=== PATIENT | male | born 1955 | race Caucasian/White ===

== ENCOUNTER 2023-08-21 22:13 | Inpatient (IN) | payer MEDICARE, MEDICAID, SELFPAY ==
[2023-08-21 22:16] VITALS: BP 140/106; PULSE 72; RESP 32; TEMP 36.5; O2SAT 94; BMI 23.9
[2023-08-21 22:24] VITALS: O2SAT 94
--- NOTE | 2023-08-21 22:32 | EKG12_ITS ---
Test Reason : DYSRHYTHMIA Blood Pressure : / mmHG Vent. Rate : 068 BPM Atrial Rate : 068 BPM P-R Int : 196 ms QRS Dur : 094 ms QT Int : 390 ms P-R-T Axes : 086 262 069 degrees QTc Int : 414 ms Normal sinus rhythm Pulmonary disease pattern Non-specific ST changes Abnormal Interpretation affected by baseline artifact Confirmed by Micky Donovan ([id number]), business editor SHAN VENEGAS ([id number]) on 08/22/2023 2:55:21 PM Referred By: Confirmed By:Micky Donovan
[2023-08-21 22:43] VITALS: PULSE 67; RESP 40
[2023-08-21] MEDS: Ipratropium/Albuterol Sulfate 3 ML AMPUL.NEB INHALATION (22:43)
[2023-08-21 22:45] VITALS: O2SAT 97
[2023-08-21] MEDS: Albuterol 2.5 MG/3 ML VIAL.NEB. INHALATION ×3 (22:45→23:08)
[2023-08-21 23:20] LABS: Absolute Lymphocyte Count 0.57 X10^3/uL (0.83-4.51); Absolute Neutrophil Count 6.6 X10^3/uL (2.0-7.7); Basophil# 0.03 X10^3/uL; Basophil% 0.4 % (0-1); Eosinophil# 0.16 X10^3/uL; Hematocrit 43.7 % (40-54); Hemoglobin 13.8 g/dL (13.0-16.5); Lymphocyte # 0.57 X10^3/ul (0.83-4.51); Lymphocyte % 7.1 % (19-41); Mean Corp Hgb Conc 31.6 g/dL (32-36); Mean Corpuscular Hgb 32.7 pg (27.0-32.0); Mean Corpuscular Volume 103.6 fL (80-94); Mean Platelet Vol. 9.5 fl (6.2-12.0); Monocyte# 0.62 X10^3/uL; Monocyte% 7.8 % (0-10); NRBC Flagged by Analyzer 0 % (0-5); Neutrophil # 6.57 X10^3/uL (2.7-7.7); Neutrophil % 82.3 % (47-70); POSITIVE DIFFERENTIAL YES; Platelet Count 182 K/mm3 (150-450); RBC Distribution Width CV 13.6 % (11.6-14.6); RBC Distribution Width SD 52.6 fl (35.1-43.9); Red Blood Count 4.22 M/mm3 (4.6-6.2)
[2023-08-21] MEDS: MethylPREDNISolone 125 MG/2 ML Vial IV (23:20)
[2023-08-21 23:21] VITALS: BP 140/89; PULSE 69; RESP 38; O2SAT 99
--- NOTE | 2023-08-21 23:24 | CPS ---
x3 Albuterol given to pt. in ER as well
--- NOTE | 2023-08-21 23:29 | EDS_ITS ---
HPI History of Present Illness Chief Complaint: Shortness of Breath Informant: patient, EMS and SNF Narrative Narrative: Patient presents around 10:30 PM for dyspnea that has been there all day and hypoxia down to 72% on room air. He is from a [place] [facility] and not on oxygen for his COPD. Patient admits to coughing. He denies having any chest discomfort. He states he is ready to go home but agrees that he is also short of breath and sick. No known fevers or chills. History from before ROS right now is limited from the patient due to dementia. [facility] Medical History ADHD (attention deficit hyperactivity disorder) Alcohol use COPD (chronic obstructive pulmonary disease) Delusional disorder Dementia Generalized arthritis Kidney disease, chronic, stage I (GFR over 89 ml/min) Paranoid schizophrenia PTSD (post-traumatic stress disorder) PVD (peripheral vascular disease) Allergy/AdvReac Type Severity Reaction Status Date / Time Penicillins Allergy Unknown UNKNOWN Verified 08/21/23 23:17 Social History housing: [place] [facility] Smoking Status: Current every day smoker tobacco type: cigarettes ROS ROS ED Constitutional Constitutional ED: Denies chills or fever(s) Eyes Eyes: Denies change in vision or diplopia ENT ENT ED: Denies rhinorrhea or sore throat Cardiovascular Cardiovascular: Denies chest pain or palpitations Respiratory/Chest Respiratory/Chest: Reports cough and dyspnea Gastrointestinal Gastrointestinal: Denies abdominal pain, diarrhea, nausea or vomiting Genitourinary Genitourinary ED: Denies dysuria or hematuria Musculoskeletal Musculoskeletal: Denies back pain or neck pain Integumentary Denies abscess or rash Neurologic Neurologic: Denies headache(s), paresthesias or weakness EXAM Physical Exam Const Vital Signs: 08/21/23 22:16 08/21/23 22:24 08/21/23 22:45 Temperature 97.7 F L Temperature Source Axillary Pulse Rate 72 Respiratory Rate 32 H Respiratory Effort Short of Breath Labored Respiratory Pattern Tachypnea Blood Pressure 140/106 H Blood Pressure Mean 117 Pulse Ox 94 97 Oxygen Delivery Method Nasal Cannula Nasal Cannula Oxygen Flow Rate (L/min) 2 2 08/21/23 23:21 08/21/23 22:43 Temperature Temperature Source Pulse Rate 69 67 Respiratory Rate 38 H 40 H Respiratory Effort Respiratory Pattern Tachypnea Blood Pressure 140/89 H Blood Pressure Mean 106 Pulse Ox 99 Oxygen Delivery Method Oxygen Flow Rate (L/min) Positive well nourished and well developed General Appearance ED: well developed and NAD HEENT Reports moist mucous membranes normocephalic and atraumatic Eyes PERRL and EOMs intact bilaterally Neck full ROM and supple Resp Resp Narrative: Prolonged expiratory phase and diffuse expiratory wheezes bilaterally and symmetrically. Diffusely diminished but symmetrically so. Tachypnea but no respiratory distress. No rales or rhonchi. Cardio regular rate, regular rhythm and no murmurs GI non-tender and non-distended Auscultation: normoactive bowel sounds Palpation: soft Back/Spine no CVA tenderness General Back: other FROM Extremity normal to inspection General Extremety ED: Negative for edema, pulses abnormal or tenderness General Extremity: Negative for edema or pulses abnormal Neuro CN's II-XII intact bilaterally and no sensory deficits noted Sensorium / Orientation: awake, alert, oriented to person and oriented to place; Negative for oriented to time Motor Exam: strength 5/5 throughout Psych Psych Narrative: Flat affect Skin no rashes or lesions noted and no wounds MDM MDM MDM Narrative Medical decision making narrative: Patient a little less wheezy after several nebulizer treatments, but still wheezing and mildly tachypneic. No respiratory distress. When we removed his oxygen at rest, he desatted down to 89% on room air. We ambulated him, and just after a short ambulation, he desatted to 85% and stayed there for a while until we got him back on oxygen. His troponin is elevated, I suspect likely due to subendocardial ischemia from hypoxemia today. His EKG shows no acute injury pattern although it is relatively limited because the patient would not sit still for the prosthetic lab technician. Given his degree of hypoxemia and the fact that he is in a long-term care facility that is not necessarily acute nursing home, will admit him. He refused chest x-ray multiple times, I was able to coax him into allowing us to do a one-view portable which on my interpretation shows no acute pneumonia, just COPD hyperexpansion. His viral swab was positive for influenza A. Lab Data Attestation: I reviewed the patient's lab results. Labs: Laboratory Results - last 24 hr 08/21/23 23:13 WBC 8.0 RBC 4.22 L Hgb 13.8 Hct 43.7 MCV 103.6 H MCH 32.7 H MCHC 31.6 L RDW Std Deviation 52.6 H RDW Coeff of Bin 13.6 Plt Count 182 MPV 9.5 Immature Gran % (Auto) 0.400 Neut % (Auto) 82.3 H Lymph % (Auto) 7.1 L [place] % (Auto) 7.8 Eos % (Auto) 2.0 Baso % (Auto) 0.4 Absolute Neuts (auto) 6.6 Absolute Lymphs (auto) 0.57 L Nucleated RBC % 0 Sodium 137 Potassium 4.8 Chloride 99 Carbon Dioxide 35.0 H Anion Gap 3 L BUN 37 H Creatinine 1.45 H Estim Creat Clear Calc 54.26 Est GFR (MDRD) Af Amer 62 Est GFR (MDRD) Non-Af 52 L BUN/Creatinine Ratio 25.5 H Glucose 129 H Calcium 9.7 Troponin I High Sens 128 H* Rhythm Strip Rhythm Strip: Sinus Rhythm Rate: 68 Ectopy: None EKG Initial EKG: Attestation: I personally reviewed and interpreted this EKG as follows: Interpretation: Sinus Rhythm and No Acute Injury Pattern Management Discussion w/another healthcare provider: Hospitalist Discharge Plan Dx/Rx/DC Orders Clinical Impression: Influenza A, Hypoxemia, Dementia, Acute exacerbation of chronic obstructive pulmonary disease (COPD), Subendocardial ischemia Disposition Disposition: [facility]
[2023-08-21 23:49] LABS: Anion Gap 3 (5-15); BUN 37 mg/dL (7-18); BUN/Creat Ratio 25.5 RATIO (10-20); Calcium,Total 9.7 mg/dL (8.5-10.1); Chloride 99 mmol/L (98-107); Creatinine, Serum 1.45 mg/dL (0.70-1.30); EST Glomerular Filtration Rate 52 mL/min (>60); Est Glom Filt Rate - Afr Amer 62 mL/min (>60); Estimated Creatinine Clearance 54.26 ml/min; Glucose 129 mg/dL (74-106); Potassium 4.8 mmol/L (3.5-5.1); Sodium Level 137 mmol/L (136-145); Troponin-I HS 128 pg/mL (3.0-78.0)
[2023-08-21 23:50] VITALS: O2SAT 85
[2023-08-22] VITALS (16 sets, daily range): BP systolic 76–125; BP diastolic 48–70; PULSE 69–82; RESP 12–30; TEMP 36.6–36.8; O2SAT 79–98; BMI 23.3
--- NOTE | 2023-08-22 00:03 | RAD_ITS ---
EXAM: XR Chest 1 View INDICATION: Male, 68 years old. Shortness of breath TECHNIQUE: Portable AP view COMPARISON: None FINDINGS: DEVICES: None LUNGS: Hyperexpansion of the lungs. No confluent air space opacity. No concerning pulmonary nodule. No pleural effusion or pneumothorax. MEDIASTINUM: Cardiac and mediastinal silhouettes are within normal limits. No central pulmonary vascular congestion. Calcification of the aortic arch. SKELETAL STRUCTURES: No acute skeletal abnormality. Mild multilevel degenerative changes in the spine. UPPER ABDOMEN: Unremarkable RAD/Chest 1 View (Portable) IMPRESSION: Chronic obstructive changes of the lungs with no acute cardiopulmonary disease Electronically Signed: Tj Ferrer MD at 0:42 EST ,
--- NOTE | 2023-08-22 00:14 | ED.RN ---
Patient refusing to wear BP cuff, heart monitor leads and SpO2 monitor. O2 NC at 2L. Dr. Fiore aware. Patient is resting in bed. Beverage given.
--- NOTE | 2023-08-22 00:20 | HP.PCM.HOS_ITS ---
HPI - General General Date of Admission: 08/22/23 Date of Service: 08/22/23 Chief Complaint: Cough, dyspnea, wheezing, hypoxia at SNF. HPI Narrative The patient is a 68 y/o M w/ PMHx: HTN, HLD, Alcohol Related Dementia with unclear behavioral disturbance history, Anxiety and Depression/ADHD/Paranoid schizophrenia/PTSD, CKD stage I, PVD, COPD, Hx EtOH Abuse, Tobacco use who presents to the [facility] ED on 08/21/23 with history of dyspnea, wheezing, labored breathing prompting EMS call to skilled facility with noted oxygenation 72% on room air normally not requiring any oxygen supplementation prompting EMS to place patient on a nonrebreather with improvement of saturations to 94% prompting ED evaluation. In the ED patient does report that he feels better since initial ED arrival. He does state that he has had a mild cough recently over the last 2448 hrs. He does admit to fatigue and malaise. He denies any recent nausea, emesis, marked congestion, fever or chills. He denies any chest pain. Workup in the ED included T97.7, heart rate 72, BP 140/106, respiratory rate 32, 94% on 2 L nasal cannula, CBC with WBC 8, hemoglobin 13.8, platelets 182 with lymphopenia, BMP with carbon oxide 35, anion gap 3, BUN/creatinine 37/1.45, glucose 129, troponin 128, chest x-ray with chronic type COPD changes with no acute cardiopulmonary findings but final read pending per radiology, rapid SARS COVID/influenza/RSV PCR with positive, EKG was sinus rhythm with no acute evidence of ischemia. In the ED patient administered albuterol, DuoNeb the rapies as well as Solu-Medrol 125 mg IV x 1. [facility] Medical History ADHD (attention deficit hyperactivity disorder) Alcoholic dementia COPD (chronic obstructive pulmonary disease) Delusional disorder Generalized arthritis History of alcohol abuse HLD (hyperlipidemia) Kidney disease, chronic, stage I (GFR over 89 ml/min) Paranoid schizophrenia PTSD (post-traumatic stress disorder) PVD (peripheral vascular disease) Tobacco use Home Medications atorvastatin 40 mg tablet 40 mg PO DAILY 08/22/23 [History Last Taken Unknown] folic acid 400 mcg tablet 400 mcg PO DAILY 08/22/23 [History Last Taken Unknown] hydrochlorothiazide 12.5 mg tablet 12.5 mg PO DAILY 08/22/23 [History Last Taken Unknown] lisinopril 10 mg tablet 10 mg PO DAILY 08/22/23 [History Last Taken Unknown] multivitamin 1 tab PO DAILY 08/22/23 [History Last Taken Unknown] olanzapine 20 mg tablet 20 mg PO DAILY 08/22/23 [History Last Taken Unknown] oxcarbazepine 150 mg tablet 150 mg PO DAILY 08/22/23 [History Last Taken Unknown] oxcarbazepine 600 mg tablet 600 mg PO DAILY 08/22/23 [History Last Taken Unknown] propranolol 120 mg capsule,24 hr,extended release (Inderal LA) 120 mg PO DAILY 08/22/23 [History Last Taken Unknown] ziprasidone HCl 20 mg capsule (Geodon) 20 mg PO DAILY 08/22/23 [History Last Taken Unknown] Allergy/AdvReac Type Severity Reaction Status Date / Time Penicillins Allergy Unknown UNKNOWN Verified 08/21/23 23:17 Family History (Updated 08/22/23 @ 00:[address] Fatemeh Guerra MD) Mother No problems noted. Father No problems noted. Family History other other (Patient denies any marked maternal or paternal family history including HD, DM, CA, Substance abuse/EtOH abuse but poor historian given dementia history.) Surgical History (Updated 08/22/23 @ 00:[address] Fatemeh Guerra MD) H/O left wrist surgery Social History (Updated 08/22/23 @ 00:[address] Fatemeh Guerra MD) household members: none housing: skilled nursing Smoking Status: Current every day smoker tobacco type: cigarettes alcohol intake: former substance use type: does not use ROS ROS Narrative Admission Review of Systems: CONSTITUTIONAL: No weight loss, fever, chills, + weakness or fatigue. HEENT: Eyes: No visual loss, blurred vision, double vision or yellow sclerae. Ears, Nose, Throat: No hearing loss, sneezing, congestion, runny nose or sore throat. SKIN: No rash or itching, lesions, wounds. CARDIOVASCULAR: No chest pain, chest pressure or chest discomfort, palpitations, edema, orthopnea, syncopal events. RESPIRATORY: + shortness of breath, cough without marked sputum. No wheezing, hemoptysis. GASTROINTESTINAL: No anorexia, nausea, vomiting or diarrhea, abdominal pain, melena, BRBPR. GENITOURINARY: No dysuria, frequency, urgency or retention. NEUROLOGICAL: + Underlying chronic alcoholic dementia. No headache, dizziness, syncope, paralysis, ataxia, numbness or tingling in the extremities, focal weakness, change in bowel or bladder control, seizure. MUSCULOSKELETAL: + muscle, back pain, joint pain or stiffness. HEMATOLOGIC: No anemia. + Easy bleeding/bruising. LYMPHATICS: No enlarged nodes. No history of splenectomy. PSYCHIATRIC: + History of anxiety and depression. ENDOCRINOLOGIC: No reports of sweating, cold or heat intolerance. No polyuria or polydipsia. ALLERGIES: No history of asthma, hives, eczema or rhinitis. Vital Signs Vital Signs Vital Signs: 08/21/23 22:16 08/21/23 22:24 08/21/23 22:45 Temperature 97.7 F L Temperature Source Axillary Pulse Rate 72 Respiratory Rate 32 H Respiratory Effort Short of Breath Labored Respiratory Pattern Tachypnea Blood Pressure 140/106 H Blood Pressure Mean 117 Pulse Ox 94 97 Oxygen Delivery Method Nasal Cannula Nasal Cannula Oxygen Flow Rate (L/min) 2 2 08/21/23 23:21 08/21/23 22:43 Temperature Temperature Source Pulse Rate 69 67 Respiratory Rate 38 H 40 H Respiratory Effort Respiratory Pattern Tachypnea Blood Pressure 140/89 H Blood Pressure Mean 106 Pulse Ox 99 Oxygen Delivery Method Oxygen Flow Rate (L/min) Weight Weight: 176 lb 5.917 oz Body Mass Index (BMI) 23.9 Physical Exam Narrative Physical Examination: General: Awake, alert, oriented to self, place and some recent events but unable to give year or month which is baseline, remains cooperative to current evaluation but did refuse several times to have chest x-ray performed but eventually allowed a single plain film, notes breathing is improved, still mild tachypnea but no evidence of respiratory distress. Skin: Normal color, normal turgor, no icterus, no cyanosis except occasional staged ecchymoses, abrasion. HEENT: AT/NC, EOMI, PERRLA, mildly dry MM, no carotid bruits or JVD noted. Lungs: Diminished, greater bases, mildly increased respiratory rate but no evidence of any distress, still diffuse soft end expiratory wheezing noted, no marked rales or rhonchi. Heart: Currently regular rate and rhythm; no gallop, rub audible. Abdomen: Soft, NTTP, ND, hyperactive BS, appreciated mild HM. Extremities: No cyanosis, clubbing, or edema. Neurological: Patient awake, alert, oriented as noted, cognitive function decreased baseline with underlying alcoholic dementia and suspect currently he is at his baseline; pupils equally reactive to light and accommodation, cranial nerves grossly normal, moving all 4 extremities, no focal deficits, strength moderately to severely globally decreased secondary to his acute pulmonary presentation Psychiatric: Affect appears flat, fatigued, no acute evidence of depressive or anxiety feelings but does have underlying history. Results Lab / Micro Data 08/21/23 23:13 08/21/23 23:13 Labs: Laboratory Results - last 24 hr 08/21/23 23:13: WBC 8.0, RBC 4.22 L, Hgb 13.8, Hct 43.7, MCV 103.6 H, MCH 32.7 H , MCHC 31.6 L, RDW Std Deviation 52.6 H, RDW Coeff of Bin 13.6, Plt Count 182, MPV 9.5, Immature Gran % (Auto) 0.400, Neut % (Auto) 82.3 H, Lymph % (Auto) 7.1 L, [place] % (Auto) 7.8, Eos % (Auto) 2.0, Baso % (Auto) 0.4, Absolute Neuts (auto) 6.6, Absolute Lymphs (auto) 0.57 L, Nucleated RBC % 0, Sodium 137, Potassium 4.8, Chloride 99, Carbon Dioxide 35.0 H, Anion Gap 3 L, BUN 37 H, Creatinine 1.45 H, Estim Creat Clear Calc 54.26, Est GFR (MDRD) Af Amer 62, Est GFR (MDRD) Non-Af 52 L, BUN/Creatinine Ratio 25.5 H, Glucose 129 H, Calcium 9.7, Troponin I High Sens 128 H* Micro: Microbiology 08/21/23 23:13 Mucosa - Nose SARS-CoV-2, Influenza & RSV (PCR) - Final Influenzae A Rhythm Strip Rhythm Strip: Sinus Rhythm Rate: 68 Ectopy: None Assessment & Plan Assessment/Plan (1) Acute exacerbation of chronic obstructive pulmonary disease (COPD): PLAN: Plan The patient is a 68 y/o M w/ PMHx: HTN, HLD, Alcohol Related Dementia with unclear behavioral disturbance history, Anxiety and Depression/ADHD/Paranoid schizophrenia/PTSD, CKD stage I, PVD, COPD, Hx EtOH Abuse, Tobacco use who presents to the [facility] ED on 08/21/23 with history of dyspnea, wheezing, labored breathing prompting EMS call to skilled facility with noted oxygenation 72% on room air normally not requiring any oxygen supplementation prompting EMS to place patient on a nonrebreather with improvement of saturations to 94% prompting ED evaluation. #1. Acute Hypoxia secondary to Acute on Chronic COPD exacerbation secondary to Acute Influenza A Syndrome: Will admit to PCU given #2, maintain on oxygen with wean as tolerated to room air, will intiate and continue on tamiflu with 75 mg x 1 and then 30 mg BID given current CrCl with adjustment penidng trending, will continue ATC duonebs, PRN albuterol, IV methylprednisolone, HOB, IS parameters, will obtain sputum Cx, procalcitonin, will hold on immediately abx therapy if concerned for overlapping superimposed bacterial infection. #2. Indeterminate cardiac enzyme, suspected demand related with hypoxemia s econdary to #1: EKG in ED sinus rhythm with no acute evidence of ischemia, CXR w/ chronic COPD type changes with no acute cardiopulmonary findings however final radiology read pending upon evaluation, initial trop 128, will maintain on monitored bed to assure no acute myocardial infarction with serial cardiac enzymes and EKGs. Echocardiogram requested. Magnesium level requested. FLP in AM. Will maintain on aspirin therapy. Again suspect this is demand related given with his acute presentation #1 but will continue closely monitor and if troponin significantly rises low threshold to place on a heparin drip and consult cardiology. #3. Presumed acute renal insufficiency on CKD stage I chart reported per skilled facility: Admission BUN/Cr 37/1.45 baseline renal function unknown however patient's GFR upon current presentation 52 and the skilled facility notes CKD stage I, will judiciously hydrate and repeat BMP in AM. #4. Hypertension: Continue home regimen including propranolol, given #3 will temporarily hold ACEI/HCYZ, PRN hydralazine. #5. Hyperlipidemia: Continue home statin regimen. #6. Alcohol related dementia with unclear behavioral disturbance history: Complicates presentation, not on any specific dementia regimen, on notable psychiatric regimen, maintain on fall precautions, PT/OT/case management consulted for discharge planning. Will continue multivitamin, folic acid and thiamine supplementation per facility. #7. Former alcohol abuse: Encouraged continued sobriety. #8. Anxiety and Depression/ADHD/Paranoid schizophrenia/PTSD: Continue home olanzapine, oxcarbazepine, geodon home regimen. #9. Tobacco Abuse: Encouraged cessation, inpatient consultation per RT, NR if desired. #10. PVD: Will continue aspirin, statin, hypertensive regimen with adjustments as noted. #11. DVT prophylaxis: Lovenox. #12. CODE status: DNR-CC per facility paperwork. Charges/Coding Visit Charges Inpatient E&M: 24755 Init Hosp L3
[2023-08-22 01:37] LABS: Magnesium 1.9 mg/dL (1.6-2.6); Phosphorus 4.4 mg/dL (2.5-4.9)
--- NOTE | 2023-08-22 01:44 | ECHOD_ITS ---
Reason For Study: CAD/ASHD Procedure This was a 2D Doppler, Color Flow transthoracic echocardiogram. Technically Difficult study. Patient uncooperative, agitated and combative, limited views were obtained. Exam performed portable in ICU/CCU. Left Ventricle Normal size and thickness. The left ventricular ejection fraction is 70 %. Unable to assess diastolic function based on available data. Right Ventricle Normal right ventricle. Atria The left and right atria are normal. Mitral Valve Trivial mitral valve insufficiency. Tricuspid Valve Moderate (2+) tricuspid valve insufficiency. Right ventricular systolic pressure estimated to be 72 mmHg. Aortic Valve Trisinus/trileaflet aortic valve. Pulmonic Valve The pulmonic valve is not well visualized. Great Vessels Mildly dilated aortic root. Pericardium/Pleural No pericardial effusion. MMode/2D Measurements & Calculations LVIDd: 3.6 cm IVSd: 1.1 cm Ao root diam: 4.0 cm LVIDs: 1.9 cm LVPWd: 0.98 cm LA dimension: 3.2 cm FS: 47.9 % Time Measurements MV dec time: 0.28 sec Doppler Measurements & Calculations MV E max jarrod: 83.9 cm/sec MV V2 max: 112.0 cm/sec MV P1/2t max jarrod: 91.6 cm/sec MV A max jarrod: 80.8 cm/sec MV max P.0 mmHg MV P1/2t: 105.6 msec MV E/A: 1.0 MV V2 mean: 64.0 cm/sec MV mean P.9 mmHg MV dec slope: 254.0 cm/sec2 MV V2 VTI: 32.3 cm MVA(P1/2t): 2.1 cm2 PA V2 max: 107.4 cm/sec TR max jarrod: 378.2 cm/sec PA V2 mean: 66.3 cm/sec TR max P.2 mmHg ECHO/Echo Complete Interpretation Summary Technically Difficult study. Limited views were obtained. The left ventricular ejection fraction is 70 %. Moderate (2+) tricuspid valve insufficiency. Right ventricular systolic pressure estimated to be 72 mmHg. Mildly dilated aortic root. Ordering Physician: Fatemeh Guerra Performed By: Christian Meek RCS
--- NOTE | 2023-08-22 02:11 | NURSING ---
Pt arrived in icu room 9 wearing clothes with hospital gown over top. At first, pt refusing to take off long sleeve shirt and allow staff to apply heart monitor. After pleading with pt, pt finally agreed to remove shirt and let us put heart monitor on. Staff documented pt's belongings in worklist and started to place belonging bag in closet, pt became angry and demanded that his jacket be placed on his bed. Pt's jacket placed on bed. Informed pt that more bloodwork was ordered, pt yells I already gave blood!. This RN educates pt that these are new orders for different labs and that his blood could be drawn from his PIV and he wouldn't have to be poked with a needle, pt reluctantly agrees to let this RN draw blood. This RN informed pt that tamiflu and aspirin were ordered for him and while trying to educate pt on why these medications were ordered, pt interrupts this RN yelling I don't want no drugs!! Pt also refused to let this RN start IV maintenance fluids. Dr. Guerra notified. Warm blanket provided. Pt offered something to drink, pt declined. Urinal given to pt. Bed exit alarm on. Call light within reach.
[2023-08-22 02:15] LABS: Absolute Lymphocyte Count 0.41 X10^3/uL (0.83-4.51); Basophil# 0.03 X10^3/uL; Basophil% 0.4 % (0-1); Eosinophil# 0.06 X10^3/uL; Eosinophils% 0.8 % (0-5); Hematocrit 41.2 % (40-54); Lymphocyte # 0.41 X10^3/ul (0.83-4.51); Lymphocyte % 5.3 % (19-41); Mean Corp Hgb Conc 31.6 g/dL (32-36); Mean Corpuscular Hgb 32.5 pg (27.0-32.0); Mean Platelet Vol. 9.9 fl (6.2-12.0); Monocyte# 0.19 X10^3/uL; Monocyte% 2.5 % (0-10); NRBC Flagged by Analyzer 0 % (0-5); Neutrophil # 7.03 X10^3/uL (2.7-7.7); Neutrophil % 90.6 % (47-70); POSITIVE DIFFERENTIAL YES; Platelet Count 164 K/mm3 (150-450); RBC Distribution Width CV 13.6 % (11.6-14.6); RBC Distribution Width SD 52.3 fl (35.1-43.9); White Blood Count 7.8 K/mm3 (4.4-11.0)
[2023-08-22] MEDS: Acetaminophen 325 MG Tablet 650 MG PO ×2 (02:37→21:38)
[2023-08-22] MEDS: guaiFENesin 10 ML UDC (200MG/10ML) 20 ML PO (02:40)
[2023-08-22 03:01] LABS: Troponin-I HS 142 pg/mL (3.0-78.0)
[2023-08-22 03:28] LABS: Procalcitonin 0.05 ng/mL (0.00-0.09)
[2023-08-22 06:12] LABS: ALB/GLOB Ratio 0.8 RATIO (0.9-2.4); AST(SGOT) 33 U/L (15-37); Alanine Aminotransfer ALT/SGPT 26 U/L (16-61); Albumin, Serum 3.6 g/dL (3.2-5.0); Alkaline Phosphatase 99 U/L (45-117); Anion Gap 7 (5-15); BUN 39 mg/dL (7-18); BUN/Creat Ratio 25.8 RATIO (10-20); Calcium,Total 9.1 mg/dL (8.5-10.1); Chloride 99 mmol/L (98-107); Creatinine, Serum 1.51 mg/dL (0.70-1.30); EST Glomerular Filtration Rate 49 mL/min (>60); Est Glom Filt Rate - Afr Amer 60 mL/min (>60); Globulin 4.3 g/dL (2.2-4.2); Glucose 143 mg/dL (74-106); Potassium 5.1 mmol/L (3.5-5.1); Protein, Total 7.9 g/dL (6.4-8.2); Sodium Level 137 mmol/L (136-145)
[2023-08-22 06:15] LABS: Troponin-I HS 145 pg/mL (3.0-78.0)
--- NOTE | 2023-08-22 08:37 | PCM.PN.HOSP ---
Reason for Visit Reason for Visit: Diagnoses Chronic obstructive pulmonary disease with (acute) exacerbation (08/22/23) Subjective Subjective Patient is a 68-year-old gentleman with history of hypertension dyslipidemia paranoid schizophrenia who presented to the emergency department with shortness of breath diagnosed with acute influenza A infection admitted to a monitored bed for further management Objective Data Objective Data Vital Signs: Vital Signs Temp Pulse Resp BP Pulse Ox O2 Del Method O2 Flow Rate 97.8 F 71 20 H 125/70 H 95 Nasal Cannula 3 08/22/23 02:28 08/22/23 02:28 08/22/23 02:28 08/22/23 02:28 08/22/23 02:28 08/22/23 02:28 08/22/23 02:28 Oxygen Flow Rate (L/min) 3 Oxygen Delivery Method Nasal Cannula Weight: 78.2 kg Body Mass Index (BMI) 23.3 Lab / Micro Data 08/22/23 02:05 08/22/23 02:05 Labs: Laboratory Results - last 24 hr 08/21/23 23:13: WBC 8.0, RBC 4.22 L, Hgb 13.8, Hct 43.7, MCV 103.6 H, MCH 32.7 H, MCHC 31.6 L, RDW Std Deviation 52.6 H, RDW Coeff of Bin 13.6, Plt Count 182, MPV 9.5, Immature Gran % (Auto) 0.400, Neut % (Auto) 82.3 H, Lymph % (Auto) 7.1 L, [place] % (Auto) 7.8, Eos % (Auto) 2.0, Baso % (Auto) 0.4, Absolute Neuts (auto) 6.6, Absolute Lymphs (auto) 0.57 L, Nucleated RBC % 0, Sodium 137, Potassium 4.8, Chloride 99, Carbon Dioxide 35.0 H, Anion Gap 3 L, BUN 37 H, Creatinine 1.45 H, Estim Creat Clear Calc 54.26, Est GFR (MDRD) Af Amer 62, Est GFR (MDRD) Non-Af 52 L, BUN/Creatinine Ratio 25.5 H, Glucose 129 H, Calcium 9.7, Phosphorus 4.4, Magnesium 1.9, Troponin I High Sens 128 H* 08/22/23 02:05: WBC 7.8, RBC 4.00 L, Hgb 13.0, Hct 41.2, MCV 103.0 H, MCH 32.5 H, MCHC 31.6 L, RDW Std Deviation 52.3 H, RDW Coeff of Bin 13.6, Plt Count 164, MPV 9.9, Immature Gran % (Auto) 0.400, Neut % (Auto) 90.6 H, Lymph % (Auto) 5.3 L, [place] % (Auto) 2.5, Eos % (Auto) 0.8, Baso % (Auto) 0.4, Absolute Neuts (auto) 7.0, Absolute Lymphs (auto) 0.41 L, Nucleated RBC % 0, Sodium 137, Potassium 5.1, Chloride 99, Carbon Dioxide 31.0, Anion Gap 7, BUN 39 H, Creatinine 1.51 H, Estim Creat Clear Calc 52.10, Est GFR (MDRD) Af Amer 60, Est GFR (MDRD) Non-Af 49 L, BUN/Creatinine Ratio 25.8 H, Glucose 143 H, Calcium 9.1, Total Bilirubin 0.30, AST 33, ALT 26, Alkaline Phosphatase 99, Troponin I High Sens 142 H*, Total Protein 7.9, Albumin 3.6, Globulin 4.3 H, Albumin/Globulin Ratio 0.8 L, Procalcitonin 0.05 08/22/23 05:20: Troponin I High Sens 145 H* Micro: Microbiology 08/21/23 23:13 Mucosa - Nose SARS-CoV-2, Influenza & RSV (PCR) - Final Influenzae A Radiography Diagnostic Testing: Radiology Impression Chest X-Ray 08/22/23 00:03 IMPRESSION: Chronic obstructive changes of the lungs with no acute cardiopulmonary disease Electronically Signed: Tj Ferrer MD at 0:42 EST , Rhythm Strip Rhythm Strip: Sinus Rhythm Rate: 68 Ectopy: None Physical Exam Narrative GENERAL: cooperative HEENT: Atraumatic; normocephalic EYES; Anicteric, Normal Conjunctiva NECK; supple, normal thyroid, RESPIRATORY: Diminished to auscultation CARDIOVASCULAR: Regular S1 S2, GI: soft, normoactive bowel sounds, : No Renal angle tenderness; EXTREMITIES: No edema, no clubbing, MUSCULOSKELETAL: no muscle wasting NEURO: Awake; no lateralizing signs. SKIN: No Rash PSYCH; Flat affect Assessment & Plan Assessment/Plan (1) Acute exacerbation of chronic obstructive pulmonary disease (COPD): PLAN: Plan Patient is a 68-year-old gentleman with history of hypertension dyslipidemia paranoid schizophrenia who presented to the emergency department with shortness of breath diagnosed with acute influenza A infection admitted to a monitored bed for further management 1. Acute hypoxia ? Secondary to combination of acute influenza A infection as well as COPD with acute exacerbation 2. Acute influenza A infection ? Patient started on Tamiflu. Per nursing staff patient is declining the Tamiflu. 3. COPD with acute exacerbation ? Patient management bronchodilator treatment systemic steroids as well as Zithromax 4. Elevated troponin A secondary to myocardial injury from 1 and #2 echo ordered for LVEF assessment 5. Hypertension - Blood pressure controlled, home medications continued with dose adjustment as needed 6. Dyslipidemia -Patient is on statin therapy, continued at home dose 7. Paranoid schizophrenia -did continue patient psychotropic medications 8. Early onset dementia ? Thought to be related to chronic alcohol use supportive care 9. DVT prophylaxis ? SC Lovenox. Time spent in the patient's overall evaluation,decision-making process, review of diagnostic data, adjustment of management, discussion with other providers, nursing nursing and ancillary staff involved in patient's care documentation, 40 Minutes Charges/Coding Visit Charges Inpatient E&M: 76786 Subs Hosp L2
--- NOTE | 2023-08-22 09:31 | CASEMGMT ---
Social Work SW called [facility], they faxed over the guardianship paper showing pt's brother Pedro is pt's guardian. SW called Pedro, confirmed the plan for pt at discharge will be for him to return to [facility]. SNF list not needed at this time. SW will continue to follow, d/c pre planning advisor Genet will send [facility] updates today. IRVING Chakraborty
[2023-08-22] MEDS: OXcarbazepine 150 MG Tablet PO (09:46)
[2023-08-22] MEDS: Aspirin 81 MG TAB.CHEW PO (09:46)
[2023-08-22] MEDS: Azithromycin 250 MG Tablet 500 MG PO (09:46)
[2023-08-22] MEDS: OLANZapine 10 MG Tablet 20 MG PO (09:47)
[2023-08-22] MEDS: Oseltamivir Phosphate 30 MG Capsule PO ×2 (09:47→21:38)
[2023-08-22] MEDS: OXcarbazepine 600 MG Tablet PO (09:47)
[2023-08-22] MEDS: Ziprasidone HCl 20 MG Capsule PO (09:47)
[2023-08-22] MEDS: Thiamine Hydrochloride 100 MG Tablet PO (09:47)
[2023-08-22] MEDS: Multivitamins,Therapeutic Tablet 1 TABLET PO (09:48)
[2023-08-22] MEDS: Folic Acid 1 MG Tablet 0.5 MG PO (09:48)
--- NOTE | 2023-08-22 10:17 | CASEMGMT ---
Discharge Planning Updates faxed to [facility] Haque. Genet Schneider, Discharge Planning Asst.
--- NOTE | 2023-08-22 15:17 | NURSING ---
pt sleeping still and vs taken. bp 76/59. internal controls consultant aware and will see if dr. greene wants fluids.
[2023-08-22] MEDS: Albuterol 2.5 MG/3 ML VIAL.NEB. INHALATION (17:35)
[2023-08-22] MEDS: MELATONIN 3 MG TABLET PO (21:38)
[2023-08-22] MEDS: Atorvastatin Calcium 40 MG Tablet PO (21:38)
--- NOTE | 2023-08-22 22:29 | PCM.HOSP.N ---
Hospitalist Note Patient with increased agitation, underlying dementia history, will add low dose q HS seroquel.
[2023-08-23] VITALS (8 sets, daily range): BP systolic 89–130; BP diastolic 41–74; PULSE 60–81; RESP 18–38; TEMP 36.2–37.9; O2SAT 94–98; BMI 23.6
[2023-08-23] MEDS: OXcarbazepine 150 MG Tablet PO ×2 (00:14→07:27)
[2023-08-23] MEDS: OXcarbazepine 600 MG Tablet PO ×2 (00:14→07:27)
[2023-08-23] MEDS: 0.9% Saline Lock 10 ML Syringe IV ×4 (04:13→21:08)
[2023-08-23] MEDS: guaiFENesin 10 ML UDC (200MG/10ML) 20 ML PO (04:13)
[2023-08-23] MEDS: Acetaminophen 325 MG Tablet 650 MG PO (04:13)
[2023-08-23 06:55] LABS: Absolute Lymphocyte Count 0.65 X10^3/uL (0.83-4.51); Absolute Neutrophil Count 10.6 X10^3/uL (2.0-7.7); Basophil# 0.03 X10^3/uL; Basophil% 0.2 % (0-1); Hematocrit 42.4 % (40-54); Hemoglobin 12.5 g/dL (13.0-16.5); Lymphocyte # 0.65 X10^3/ul (0.83-4.51); Lymphocyte % 5.4 % (19-41); Mean Corp Hgb Conc 29.5 g/dL (32-36); Mean Corpuscular Hgb 32.5 pg (27.0-32.0); Mean Corpuscular Volume 110.1 fL (80-94); Mean Platelet Vol. 10.1 fl (6.2-12.0); Monocyte# 0.66 X10^3/uL; Monocyte% 5.5 % (0-10); NRBC Flagged by Analyzer 0.2 % (0-5); Neutrophil # 10.63 X10^3/uL (2.7-7.7); Neutrophil % 87.7 % (47-70); Platelet Count 152 K/mm3 (150-450); RBC Distribution Width CV 13.8 % (11.6-14.6); RBC Distribution Width SD 56.4 fl (35.1-43.9); Red Blood Count 3.85 M/mm3 (4.6-6.2); White Blood Count 12.1 K/mm3 (4.4-11.0)
--- NOTE | 2023-08-23 07:19 | PCM.PN.HOSP ---
Reason for Visit Reason for Visit: Diagnoses Chronic obstructive pulmonary disease with (acute) exacerbation (08/22/23) Subjective Subjective Patient admitted with acute influenza A infection started on Tamiflu as well as symptom management. Transferred from the ICU to [facility]. Patient kidney function is worsening and has hyperkalemia this a.m. Objective Data Objective Data Vital Signs: Vital Signs Temp Pulse Resp BP Pulse Ox O2 Del Method O2 Flow Rate 99.1 F 73 20 H 94/58 L 98 Nasal Cannula 5 08/23/23 04:25 08/23/23 04:25 08/23/23 04:25 08/23/23 04:25 08/23/23 04:25 08/23/23 04:34 08/23/23 04:25 Oxygen Flow Rate (L/min) 5 Oxygen Delivery Method Nasal Cannula Weight: 79.152 kg Body Mass Index (BMI) 23.6 Intake & Output: Intake and Output for Last 24 Hours 08/21/23 08/22/23 08/23/23 23:59 23:59 23:59 Intake Total 240 / 240 100 / 100 Output Total 0 / 0 Balance 240 / 240 100 / 100 Lab / Micro Data 08/23/23 06:46 08/23/23 06:46 Labs: Laboratory Results - last 24 hr 08/23/23 06:46: WBC 12.1 H, RBC 3.85 L, Hgb 12.5 L, Hct 42.4, MCV 110.1 H D, MCH 32.5 H, MCHC 29.5 L D, RDW Std Deviation 56.4 H, RDW Coeff of Bin 13.8, Plt Count 152, MPV 10.1, Immature Gran % (Auto) 1.200 H, Neut % (Auto) 87.7 H, Lymph % (Auto) 5.4 L, [place] % (Auto) 5.5, Eos % (Auto) 0.0, Baso % (Auto) 0.2, Absolute Neuts (auto) 10.6 H, Absolute Lymphs (auto) 0.65 L, Nucleated RBC % 0.2 Micro: Microbiology 08/21/23 23:13 Mucosa - Nose SARS-CoV-2, Influenza & RSV (PCR) - Final Influenzae A Radiography Diagnostic Testing: Radiology Impression Echocardiogram 08/22/23 01:44 Interpretation Summary Technically Difficult study. Limited views were obtained. The left ventricular ejection fraction is 70 %. Moderate (2+) tricuspid valve insufficiency. Right ventricular systolic pressure estimated to be 72 mmHg. Mildly dilated aortic root. Ordering Physician: Fatemeh Guerra Performed By: Christian Meek RCS Rhythm Strip Rhythm Strip: Sinus Rhythm Rate: 68 Ectopy: None Physical Exam Narrative GENERAL: cooperative HEENT: Atraumatic; normocephalic EYES; Anicteric, Normal Conjunctiva NECK; supple, normal thyroid, RESPIRATORY: Diminished to auscultation with bilateral crackles CARDIOVASCULAR: Regular S1 S2, GI: soft, normoactive bowel sounds, : No Renal angle tenderness; EXTREMITIES: No edema, no clubbing, MUSCULOSKELETAL: no muscle wasting NEURO: Awake; no lateralizing signs. SKIN: No Rash PSYCH; Flat affect Assessment & Plan Assessment/Plan (1) Acute exacerbation of chronic obstructive pulmonary disease (COPD): PLAN: Plan Patient is a 68-year-old gentleman with history of hypertension dyslipidemia paranoid schizophrenia who presented to the emergency department with shortness of breath diagnosed with acute influenza A infection admitted to a monitored bed for further management 1. Acute hypoxia ? Secondary to combination of acute influenza A infection as well as COPD with acute exacerbation ? 08/23/2023; patient was transferred from intensive care unit to [facility]. 2. Acute influenza A infection ? Patient started on Tamiflu. Per nursing staff patient is declining the Tamiflu. 3. COPD with acute exacerbation ? Patient management bronchodilator treatment systemic steroids as well as Zithromax 4. Elevated troponin A secondary to myocardial injury from 1 and #2 echo ordered for LVEF assessment 5. Acute kidney injury ? Creatinine on admission was 1.45 did increase to 1.51 on 08/22/2023 and up to 2.62. Patient started on fluids with discontinuation of potential nephrotoxic medication. As part of his management ordered renal duplex and repeat BMP ordered for a.m. 6. Hyperkalemia ?Ordered Joselinxalate with repeat labs ordered for follow-up 7. Hypertension - Blood pressure controlled, home medications continued with dose adjustment as needed ? 08/23/2023 patient blood pressure on the low side antihypertensives subsequently held 8. Early onset dementia ? Thought to be related to chronic alcohol use supportive care 9. Dyslipidemia -Patient is on statin therapy, continued at home dose 10. Paranoid schizophrenia -did continue patient psychotropic medications 11. DVT prophylaxis ? SC Lovenox. Time spent in the patient's overall evaluation,decision-making process, review of diagnostic data, adjustment of management, discussion with other providers, nursing nursing and ancillary staff involved in patient's care documentation, 50 Minutes Charges/Coding Visit Charges Inpatient E&M: 23665 Subs Hosp L3
[2023-08-23] MEDS: Ziprasidone HCl 20 MG Capsule PO (07:27)
[2023-08-23] MEDS: Azithromycin 250 MG Tablet 500 MG PO (07:28)
[2023-08-23] MEDS: Enoxaparin 40 MG/0.4 ML Syringe SC (07:28)
[2023-08-23] MEDS: Aspirin 81 MG TAB.CHEW PO (07:28)
[2023-08-23] MEDS: Propranolol LA 60 MG Capsule 120 MG PO (07:28)
[2023-08-23] MEDS: Thiamine Hydrochloride 100 MG Tablet PO (07:29)
[2023-08-23] MEDS: Folic Acid 1 MG Tablet 0.5 MG PO (07:29)
[2023-08-23] MEDS: Oseltamivir Phosphate 30 MG Capsule PO (07:30)
[2023-08-23] MEDS: Multivitamins,Therapeutic Tablet 1 TABLET PO (07:30)
[2023-08-23 08:06] LABS: Anion Gap 5 (5-15); BUN 65 mg/dL (7-18); BUN/Creat Ratio 24.8 RATIO (10-20); Calcium,Total 8.9 mg/dL (8.5-10.1); Chloride 100 mmol/L (98-107); Cholesterol 123 mg/dL (200); Creatinine, Serum 2.62 mg/dL (0.70-1.30); EST Glomerular Filtration Rate 26 mL/min (>60); Est Glom Filt Rate - Afr Amer 32 mL/min (>60); Estimated Creatinine Clearance 30.03 ml/min; Glucose 130 mg/dL (74-106); High Density Lipoprotein 62 mg/dL; Magnesium 2.3 mg/dL (1.6-2.6); Potassium 5.8 mmol/L (3.5-5.1); Sodium Level 136 mmol/L (136-145); Triglycerides 55 mg/dL; Very Low Density Lipoprotein 11 mg/dL (5-40)
--- NOTE | 2023-08-23 08:11 | US_ITS ---
PROCEDURE: RENAL ULTRASOUND - COMPLETE REASON FOR EXAM: Male, 68 years old. Acute kidney injury TECHNIQUE: Ultrasound evaluation of the bilateral kidneys was performed with real-time ultrasonography and static grayscale imaging. COMPARISON: None. FINDINGS: RIGHT KIDNEY: Normal location of the right kidney which is normal in size. The right kidney measures 9.5 x 4.1 x 4.3 cm. The right kidney is echogenic in texture. The renal cortex measures 1.1 cm. There is no right renal mass or cyst. There are no right renal calculi. There is no right hydronephrosis. DISTAL RIGHT URETER: There is non-visualization of the distal right ureter. There is no demonstrated right ureterovesical junction calculus. There is no demonstrated right ureteral jet. LEFT KIDNEY: Normal location of the left kidney which is normal in size. The left kidney measures 8 x 4.1 x 4.6 cm. The left kidney is echogenic in texture. The renal cortex measures 1.1 cm. There is a small simple cyst in the lateral aspect of the left kidney measuring about 1.3 cm. There are no left renal calculi. There is no left hydronephrosis. DISTAL LEFT URETER: There is non-visualization of the distal left ureter. There is no demonstrated left ureterovesical junction calculus. There is no demonstrated left ureteral jet. BLADDER: The distended urinary bladder has a volume of 464 ml. There is a normal wall thickness of the distended urinary bladder. There is no demonstrated mass within the urinary bladder. There is no demonstrated bladder calculi. US/Kidney and Bladder IMPRESSION: 1. Echogenic kidneys which may reflect renal medical disease. 2. No evidence of hydronephrosis. 3. Small left renal cyst. Electronically Signed: Henry Macias MD at 13:03 EST ,
[2023-08-23 08:14] LABS: Phosphorus 7.8 mg/dL (2.5-4.9)
[2023-08-23] MEDS: 0.9% Normal Saline (1000mL) 1,000 ML 150 ML IV ×3 (09:48→23:21)
[2023-08-23] MEDS: Sodium Polystyrene Sulfonate 15 GM/60 ML UDC 30 GM PO (09:48)
--- NOTE | 2023-08-23 11:16 | NURSING ---
1045-pt awake and took a few sips of kayexalate before falling back to sleep.
[2023-08-23 13:25] LABS: Anion Gap 1 (5-15); BUN 69 mg/dL (7-18); BUN/Creat Ratio 23.5 RATIO (10-20); Calcium,Total 8.6 mg/dL (8.5-10.1); Chloride 100 mmol/L (98-107); Creatinine, Serum 2.94 mg/dL (0.70-1.30); EST Glomerular Filtration Rate 23 mL/min (>60); Est Glom Filt Rate - Afr Amer 28 mL/min (>60); Estimated Creatinine Clearance 26.76 ml/min; Glucose 130 mg/dL (74-106); Potassium 5.8 mmol/L (3.5-5.1); Sodium Level 137 mmol/L (136-145)
--- NOTE | 2023-08-23 21:55 | PCM.HOSP.N ---
Hospitalist Note Patient with decreased responsiveness, tachypnea, currently febrile, transitioning to DC ASA. Given DNR-CC, will also add comfort regimen to assure comfort addressed. Also, requested staff allow family to visit with him.
--- NOTE | 2023-08-23 22:04 | NURSING ---
spoke to pt guardian, brother Papi Li, updated him on pt condition and dr witt (see physicians notification), DNRCC, guardian aware staff will keep pt comfortable. supervisor in charge aware, nursing supv updated
[2023-08-23] MEDS: Acetaminophen 650 MG Suppository RC (22:24)
--- NOTE | 2023-08-24 00:24 | PN.HOSP_ITS ---
Hospitalist Note Patient passed 08/24/23 0022.
--- NOTE | 2023-08-24 00:24 | PCM.HOSP.N ---
Hospitalist Note Patient passed 08/24/23 0022.
--- NOTE | 2023-08-24 00:28 | NURSING ---
financial assistance specialist's asked rn to check pt to see if he was breathing, this rn and learning support resource room teacher confirmed no resp, no pulse @ 0022. kd morales supv notified by learning support resource room teacher, will call gdlesly
--- NOTE | 2023-08-24 00:38 | NURSING ---
pt brother/gdn Pedro notified of pt . he asked nurse to contact [facility] to see if arrangements were made for pt cremation as he had talked with the facility about this, if not made yet he is ok with local home being called
--- NOTE | 2023-08-24 00:47 | NURSING ---
called [facility] half-way and notified nurse lily that pt . no home arrangements are noted to have been made in the record for pt.
--- NOTE | 2023-08-24 00:58 | NURSING ---
left msg for pt guardian/brother Ed that [facility] does not have record of premade cremation arrangements and the service advocate contact (jazmyne) is not in right now, so after checking with nursing electrical supervisor, pt will be placed in the morgue until confirmation can be made if pt has premade arrangements with a particular home. gas charger aware
--- NOTE | 2023-08-24 01:05 | NURSING ---
Zulema, nurse at [facility] called after speaking with jessica and pt brother/gdn Ed, and [facility] in [place] [phone] has been chosen, chargeback specialist notified.
--- NOTE | 2023-08-24 01:36 | NURSING ---
post mortem care complete
--- NOTE | 2023-08-24 07:04 | PCM.DEATH ---
Preliminary Cause of Preliminary Cause of Preliminary Cause of : Acute influenza A infection Acute kidney injury Date of Admission: 08/22/23 Date of : 08/24/23 Principle Diagnosis Problem List: Active and Suspected Problems (Updated 08/22/23 @ 00:[address] Fatemeh Guerra MD) Dementia (Acute) Hypoxemia (Acute) Influenza A (Acute) Hospital Course Patient is a 68-year-old gentleman with history of hypertension dyslipidemia paranoid schizophrenia who presented to the emergency department with shortness of breath diagnosed with acute influenza A infection admitted to a monitored bed for further management. An assessment of acute hypoxia secondary to combination of acute influenza A infection as well as COPD exacerbation made admitted to a monitored bed as stated above. Patient clinical condition continued to deteriorate. Patient went into acute kidney injury with hyperkalemia. Patient clinical condition continued to deteriorate despite optimal management.Patient was found to have decreased level of sensorium with tachypnea. With patient CODE STATUS being DNR CC comfort care measures were initiated. Patient was found without heart tones and spontaneous breathing on 03/06/2024 at 0 22. Patient was pronounced Visit Charges Inpatient E&M: 40852 Disch Hosp
== END 2023-08-24 01:45 | DRG 191 ==
LOC: ED 08-22 00:20 → ICU 08-22 00:32 → MS3 08-22 17:37
PROVIDERS: Admitting Provider Family Medicine; Emergency Provider Emergency Medicine; PCP Family Medicine; Visit Provider Internal Medicine
DX: J44.1 Chronic obstructive pulmonary disease with (acute) exacerbation (principal); N17.9 Acute kidney failure, unspecified; F20.0 Paranoid schizophrenia; I5A Non-ischemic myocardial injury (non-traumatic); F10.97 Alcohol use, unspecified with alcohol-induced persisting dementia; J44.0 Chronic obstructive pulmonary disease with (acute) lower respiratory infection; I73.9 Peripheral vascular disease, unspecified; F32.A Depression, unspecified; I12.9 Hypertensive chronic kidney disease with stage 1 through stage 4 chronic kidney disease, or unspecified chronic kidney disease; J10.1 Influenza due to other identified influenza virus with other respiratory manifestations; N18.1 Chronic kidney disease, stage 1; E78.5 Hyperlipidemia, unspecified; F17.210 Nicotine dependence, cigarettes, uncomplicated; E87.5 Hyperkalemia; Y90.9 Presence of alcohol in blood, level not specified; F90.9 Attention-deficit hyperactivity disorder, unspecified type; F43.10 Post-traumatic stress disorder, unspecified; R09.02 Hypoxemia; Z66 Do not resuscitate; Z72.51 High risk heterosexual behavior; Z79.82 Long term (current) use of aspirin; Z79.899 Other long term (current) drug therapy
CPT/HCPCS: 36415; 71045; 76770; 80048; 80053; 80061; 83735; 84100; 84145; 84484; 85025; 87631; 93005; 93306; 94640; 94668; 99285; 99406; J7030; Q9957; A4216